=== PATIENT | male | born 1935 | race Caucasian/White ===

== ENCOUNTER 2021-12-25 19:02 | Emergency (ER) | payer OTHER | END 2021-12-25 22:49 | disposition home or self-care (01) | LOC: ER 19:02 | DX: S05.11XA Contusion of eyeball and orbital tissues, right eye, initial encounter (principal); S50.312A Abrasion of left elbow, initial encounter; S50.311A Abrasion of right elbow, initial encounter; S40.812A Abrasion of left upper arm, initial encounter; S40.811A Abrasion of right upper arm, initial encounter; U07.1 COVID-19; E11.9 Type 2 diabetes mellitus without complications; J44.9 Chronic obstructive pulmonary disease, unspecified; I10 Essential (primary) hypertension; Z95.0 Presence of cardiac pacemaker; Z79.899 Other long term (current) drug therapy; Z79.82 Long term (current) use of aspirin; V58.5XXA Driver of pick-up truck or van injured in noncollision transport accident in traffic accident, initial encounter | CPT/HCPCS: 36415; 93005; 99284-25 ==